=== PATIENT | male | born 1960 | race Caucasian/White ===

== ENCOUNTER 2019-11-29 11:42 | Outpatient (CLI) | payer OTHER, SELFPAY ==
--- NOTE | ~2019-11-29 | XR_ITS ---
EXAMINATION: SACRUM/COCCYX DATE: 11/29/2019 12:23 INDICATION: Low back pain TECHNIQUE: Three views sacrum/coccyx FINDINGS: No prior studies for comparison. There is no displaced fracture of the sacrum. The coccyx demonstrates overall normal morphology with out acute angulation. IMPRESSION: 1. No acute displaced osseous abnormality of the sacrum. Suspicion for occult or nondisplaced sacral fracture can either be evaluated with CT or MRI. 2. Grossly normal morphology to the coccyx without acute angulation. However, due to the wide range of normal variation of the coccyx, acute injury would be best evaluated by clinical examination and patient's symptoms. Reviewed, dictated and finalized at location B.
--- NOTE | ~2019-11-29 | XR_ITS ---
XR lumbar spine 2-3V 11/29/2019 12:23 Indication: Low back pain Procedure: 3 views lumbar spine Comparison: No prior studies for comparison. Findings: There is mild levocurvature. There is mild disc narrowing at L3-4, L4-5 and L5-S1. There is moderate lower facet hypertrophy. No evidence for spondylolisthesis. No acute fracture or traumatic malalignment. There is a possible nondisplaced coccyx fracture. There is slight angulation, although no discrete fracture line is evidence. Impression: 1: Possible nondisplaced coccyx fracture. Reviewed, dictated and finalized at location B. Impression: 1: Possible nondisplaced coccyx fracture.
== END 2019-11-29 11:43 | disposition home or self-care (01) ==
LOC: CHSIMG 11:47
PROVIDERS: PCP Internal Medicine; Visit Provider Internal Medicine
DX: M54.9 Dorsalgia, unspecified (principal); I73.9 Peripheral vascular disease, unspecified
CPT/HCPCS: 72100; 72220

== ENCOUNTER 2019-11-30 10:47 | Outpatient (CLI) | payer OTHER, SELFPAY ==
--- NOTE | ~2019-11-30 | US_ITS ---
US arterial ankle brachial ind INDICATION: Peripheral arterial disease TECHNIQUE: Segmental pressures and plethysmographic and Doppler waveforms of the brachial and lower e xtremity arteries were obtained. COMPARISON: None. FINDINGS: Right and left brachial artery pressures of 125 mm Hg and 137 mm Hg, respectively, are concordant (no rmal difference <= 30 mmHg). The right ankle-brachial index (BARB) is 1.22 (normal >= 0.9-1.0). The right great toe-brachial index (TBI) is 0.83 (normal >= 0.60). The left BARB is 1.26. The left TBI is 0.98. IMPRESSION: 1. Normal ankle-brachial indices. Reviewed, dictated and finalized at location B.
== END 2019-11-30 10:48 | disposition home or self-care (01) ==
PROVIDERS: PCP Internal Medicine; Visit Provider Internal Medicine
DX: I73.9 Peripheral vascular disease, unspecified (principal); M54.9 Dorsalgia, unspecified
CPT/HCPCS: 93922

== ENCOUNTER 2021-06-11 09:56 | Outpatient (CLI) | payer OTHER, SELFPAY ==
[2021-06-11 10:14] LABS: Basophils Absolute Auto 0.03 K/mm3 (0.00-0.10); Basophils Percent Auto 0.6 % (0.0-1.0); Eosinophils Absolute Auto 0.19 K/mm3 (0.02-0.50); Eosinophils Percent Auto 3.6 % (1.0-6.0); Hematocrit 42.7 % (40.0-54.0); Hemoglobin 14.2 g/dL (14.0-18.0); Immature Granulocyte Absolute 0.03 K/mm3 (0.00-0.00); Immature Granulocyte Percent A 0.6 % (0.0-0.0); Lymphocytes Absolute Auto 1.55 K/mm3 (1.10-4.50); Lymphocytes Percent Auto 29.5 % (18.0-42.0); Mean Corpuscular HGB Conc 33.3 g/dL (32.0-36.0); Mean Corpuscular Hemoglobin 32.3 pg (27.0-31.0); Mean Corpuscular Volume 97.3 fL (78.0-102.0); Monocytes Absolute Auto 0.56 K/mm3 (0.10-0.90); Monocytes Percent Auto 10.6 % (2.0-11.0); Neutrophils Absolute Auto 2.9 K/mm3 (1.7-7.2); Neutrophils Percent Auto 55.1 % (50.0-70.0); Platelet Count Result 192 K/mm3 (150-420); Red Blood Count 4.39 M/mm3 (4.70-6.10); Red Cell Distribution Width 12.1 % (11.6-14.4); White Blood Count 5.3 K/mm3 (4.8-10.8)
[2021-06-11 10:17] LABS: Add Urine Microscopic? NO; Appearance Urine Clear (Clear); Bilirubin Urine Negative (Negative); Blood Urine Negative (Negative); Color Urine Yellow (Yellow); Glucose Urine UA Negative (Negative); Ketones Urine Negative (Negative); Leukocyte Esterase Ur Negative (Negative); Nitrate Urine Negative (Negative); Protein Urine Negative (Negative); Urobilinogen Urine 0.2 mg/dL (0.2-1.0)
[2021-06-11 11:03] LABS: Alanine Aminotransferase 45 U/L (16-63); Alkaline Phosphatase 46 U/L (46-116); Anion Gap 5 mmol/L (8-16); Aspartate Amino Transferase 22 U/L (15-37); Bilirubin,Total 0.4 mg/dL (0.00-1.00); Blood Urea Nitrogen 18 mg/dL (7-18); Calcium 8.8 mg/dL (8.5-10.1); Carbon Dioxide 29 mmol/L (21-32); Chloride 105 mmol/L (98-108); Cholesterol 274 mg/dL (0-200); Estimated Glomerular Filt Rate > 60; Glucose 111 mg/dL (70-99); HDL Direct 51 mg/dL (40-60); LDL Cholesterol Calculated 196 mg/dL (<130); Osmolality Calculated 290 mOsm/kg (285-295); Potassium 4.4 mmol/L (3.5-5.1); Prostate Specific Antigen 4.3 ng/mL (< OR = 4.0); Sodium 139 mmol/L (136-145); Thyroid Stimulating Hormone 1.43 uIU/mL (0.36-3.74); Total Protein 6.8 g/dL (6.4-8.2); Triglycerides 134 mg/dL (0-150)
[2021-06-11 11:07] LABS: CRP < 0.2 mg/dL (0.0-0.9)
[2021-06-11 17:22] LABS: Hemoglobin A1C 5.9 % (<5.7)
== END 2021-06-11 09:57 | disposition home or self-care (01) ==
LOC: CHSLAB 10:00
PROVIDERS: PCP Internal Medicine; Visit Provider Internal Medicine
DX: Z00.00 Encounter for general adult medical examination without abnormal findings (principal); M13.0 Polyarthritis, unspecified; R13.10 Dysphagia, unspecified; Z12.5 Encounter for screening for malignant neoplasm of prostate; R73.01 Impaired fasting glucose
CPT/HCPCS: 36415; 80053; 80061; 81003; 83036; 84153; 84443; 85025; 86140; G0103

== ENCOUNTER 2021-06-19 07:53 | Outpatient (CLI) | payer OTHER, SELFPAY ==
--- NOTE | ~2021-06-19 | XR_ITS ---
EXAMINATION: XR barium swallow DATE: 06/23/2021 13:52 INDICATION: Dysphagia. Reflux. TECHNIQUE: The patient drank thick barium, gas-producing crystals, and thin barium. Fluoroscopic spot radiographs of the hypopharynx and esophagus were obtained. A total of 1127 images were obtained. Fl uoroscopy exposure time was 1.8 minutes. Total DAP was 15.698 mGycm^2. COMPARISON: None. FINDINGS: The pharynx is symmetric and without evidence of mass lesion or mucosal irregularity. The e sophagus is normal without mass or stricture. Esophageal motility is normal. There is no hiatal herni a. There was no gastroesophageal reflux with provocative maneuvers. IMPRESSION: 1. Normal upper GI study. Reviewed, dictated and finalized at location A. IMPRESSION: 1. Normal upper GI study.
== END 2021-06-19 07:54 | disposition home or self-care (01) ==
LOC: CHSIMG 07:54
PROVIDERS: PCP Internal Medicine; Visit Provider Internal Medicine
DX: R13.10 Dysphagia, unspecified (principal)
CPT/HCPCS: 74220